=== PATIENT | female | born 1985 | race African-American/Black ===

== ENCOUNTER 2016-05-18 14:56 | Emergency (ER) | payer BC, OTHER ==
[~2016-05-18] VITALS: Ht 172.7 cm; Wt 158.8 kg
[2016-05-18 15:50] VITALS: BP 163/82
[2016-05-18] MEDS ORDERED: HYDR115S2 PO (16:28)
[2016-05-18] MEDS ORDERED: AZIT250T PO (16:28)
--- NOTE | 2016-05-18 16:28 | PHYS DOC ---
Past Medical History Past Medical History: No Pertinent History, Asthma Past Surgical History: No Surgical History Alcohol Use: None Drug Use: None Adult General Chief Complaint Chief Complaint: GENERALIZED BODY ACHES [facility] HPI Patient is a 30 year old female presents emergency Department with complaints of a progressive illness over the past 4 days this culminated in her right ear pain, headaches, fevers and chills, nasal congestion as well as body aches. Patient denies any known direct ill contacts with similar symptoms. She states that she did have a niece with a fever cough that she was exposed to approximately week ago. Patient does have a history of asthma. She denies any wheezing or respiratory difficulty. Patient denies antibiotic use, hospitalization or foreign travel within the past 90 days. Review of Systems Review of Systems Constitutional: Denies fever or chills [] Eyes: Denies change in visual acuity, redness, or eye pain [] HENT: Denies nasal congestion or sore throat [] Respiratory: Denies cough or shortness of breath [] Cardiovascular: No additional information not addressed in HPI [] GI: Denies abdominal pain, nausea, vomiting, bloody stools or diarrhea [] : Denies dysuria or hematuria [] Musculoskeletal: Denies back pain or joint pain [] Integument: Denies rash or skin lesions [] Neurologic: Denies headache, focal weakness or sensory changes [] Endocrine: Denies polyuria or polydipsia [] Allergies Allergies Allergies Coded Allergies Type Severity Reaction Last Updated Verified No Known Drug Allergies 04/22/13 No Physical Exam Physical Exam Constitutional: Well developed, well nourished, no acute distress, non-toxic appearance. HENT: Normocephalic, atraumatic, bilateral external ears normal, oropharynx moist, no oral exudates, nose normal. Right tympanic membrane is bulging and hyperemic. There is no mastoiditis. There is no trismus or hot potato speech. Posterior oropharynx is normal in appearance. Eyes: PERRLA, EOMI, conjunctiva normal, no discharge. [] Neck: Normal range of motion, no tenderness, supple, no stridor. There is no meningismus. There is bilateral anterior posterior cervical lymphadenopathy. Cardiovascular:Heart rate regular rhythm, no murmur [] Lungs & Thorax: Bilateral breath sounds clear to auscultation. Abdomen: Bowel sounds normal, soft, no tenderness, no masses, no pulsatile masses. [] Skin: Warm, dry, no erythema, no rash. Back: No tenderness, no CVA tenderness. [] Extremities: No tenderness, no cyanosis, no clubbing, ROM intact, no edema. [] Neurologic: Alert and oriented X 3, normal motor function, normal sensory function, no focal deficits noted. [] Psychologic: Affect normal, judgement normal, mood normal. [] Current Patient Data Vital Signs Vital Signs Date Time Temp Pulse Resp B/P Pulse Ox O2 Delivery O2 Flow Rate FiO2 05/18/16 15:50 100.4 110 24 97 Room Air 100.4 EKG EKG [] Radiology/Procedures Radiology/Procedures [] Course & Med Decision Making Course & Med Decision Making Pertinent Labs and Imaging studies reviewed. (See chart for details) [] Dragon Disclaimer Dragon Disclaimer This electronic medical record was generated, in whole or in part, using a voice recognition dictation system. Departure Departure Impression: Primary Impression: Viral upper respiratory infection Additional Impression: Otitis media Disposition: 01 HOME, SELF-CARE Condition: GOOD Referrals: NO PCP (PCP) Patient Instructions: Otitis Media, Adult, Ognh-[id number], Upper Respiratory Infection, Adult, [id number] Additional Instructions: 1. Take the medication as prescribed. Augment the medication with ibuprofen every 8 hours. 2. Review the discharge instructions for self-care and reasons to return the emergency department. 3. Use the pamphlet provided for assistance in finding a primary care doctor to address your medical concerns and provide follow-up care within the next week. Scripts Azithromycin (Zithromax)250 Mg Tablet1 Pkg PO UD #6 TAB Prov:LUCILA MATTHEWS 05/18/16 Hydrocodone/Chlorphen Polis (Tussionex Pennkinetic Susp)480 Ml [id number].[id number] Ml PO BID PRN COUGH #120 ML Prov:LUCILA MATTHEWS 05/18/16 Problem Qualifiers LUCILA MATTHEWS May 18, 2016 16:28
== END 2016-05-18 16:44 | disposition home or self-care (01) ==
LOC: ER 14:56
DX: J06.9 Acute upper respiratory infection, unspecified (principal); H66.91 Otitis media, unspecified, right ear; J45.909 Unspecified asthma, uncomplicated
CPT/HCPCS: 99283

== ENCOUNTER 2016-12-30 21:01 | Emergency (ER) | payer SELFPAY ==
[~2016-12-30] VITALS: Ht 172.7 cm; Wt 158.8 kg
[~2016-12-30 21:01] MED LIST: AZIT250T PO; HYDR115S2 PO
[2016-12-30 21:20] VITALS: BP 160/88
--- NOTE | 2016-12-30 21:30 | PHYS DOC ---
Past Medical History Past Medical History: No Pertinent History, Asthma Past Surgical History: No Surgical History Alcohol Use: None Drug Use: None Adult General Chief Complaint Chief Complaint: VAGINAL PROBLEM HPI HPI Patient is a 31 year old female presents to the emergency department stating that she has having vaginal itching. She denies vaginal discharge. She denies any urinary frequency urgency or pain with urination. She denies any abdominal pain and fever, chills or nausea vomiting. Patient denies being sexually active. Review of Systems Review of Systems Constitutional: Denies fever or chills [] Eyes: Denies change in visual acuity, redness, or eye pain [] HENT: Denies nasal congestion or sore throat [] Respiratory: Denies cough or shortness of breath [] Cardiovascular: No additional information not addressed in HPI [] GI: Denies abdominal pain, nausea, vomiting, bloody stools or diarrhea [] : Denies dysuria or hematuria. Complaint of vaginal itching Musculoskeletal: Denies back pain or joint pain [] Integument: Denies rash or skin lesions [] Neurologic: Denies headache, focal weakness or sensory changes [] Endocrine: Denies polyuria or polydipsia [] Allergies Allergies Allergies Coded Allergies Type Severity Reaction Last Updated Verified No Known Drug Allergies 04/22/13 No Physical Exam Physical Exam Constitutional: Well developed, well nourished, no acute distress, non-toxic appearance. [] HENT: Normocephalic, atraumatic, bilateral external ears normal, oropharynx moist, no oral exudates, nose normal. [] Eyes: PERRLA, EOMI, conjunctiva normal, no discharge. [] Neck: Normal range of motion, no tenderness, supple, no stridor. [] Cardiovascular: Patient pink warm and dry Lungs & Thorax: No respiratory distress noted Skin: Warm, dry, no erythema, no rash. [] Extremities: No tenderness, no cyanosis, no clubbing, ROM intact, no edema. [] Neurologic: Alert and oriented X 3, normal motor function, normal sensory function, no focal deficits noted. [] Psychologic: Affect normal, judgement normal, mood normal. [ Vaginal exam completed with my, RN at bedside. Manual exam with no adnexal no CMT tenderness noted. Speculum exam noted with white vaginal discharge with a foul odor. Current Patient Data Vital Signs Vital Signs Date Time Temp Pulse Resp B/P (MAP) Pulse Ox O2 Delivery O2 Flow Rate FiO2 12/30/16 21:20 98.5 96 18 97 Room Air 98.5 Lab Values Laboratory Tests Test 12/30/16 21:25 12/30/16 21:28 Urine Collection Type Unknown Urine Color Yellow Urine Clarity Turbid Urine pH 6.0 Urine Specific [place] >=1.030 Urine Protein Negative mg/dL (NEG-TRACE) Urine Glucose (UA) 250 mg/dL (NEG) Urine Ketones (Stick) Negative mg/dL (NEG) Urine Blood Negative (NEG) Urine Nitrite Negative (NEG) Urine Bilirubin Negative (NEG) Urine Urobilinogen Dipstick 0.2 mg/dL (0.2 mg/dL) Urine Leukocyte Esterase Small (NEG) Urine RBC 0 /HPF (0-2) Urine WBC 11-20 /HPF (0-4) Urine Squamous Epithelial Cells Many /LPF Urine Bacteria Moderate /HPF (0-FEW) Urine Mucus Marked /LPF Urine Yeast Present /HPF POC Urine HCG, Qualitative Hcg negative (Negative) Microbiology 12/30/16 Wet Prep - Final, Complete EKG EKG [] Radiology/Procedures Radiology/Procedures [] Course & Med Decision Making Course & Med Decision Making Pertinent Labs and Imaging studies reviewed. (See chart for details) Urine is positive for UTI and yeast infection. Patient will be discharged home in stable condition. Drink plenty of fluids such as water and cranberry juice. Avoid cranberry juice cocktail, carbonate beverages, citrus fruits and alcohol sees her considered irritants to the bladder. Medication as prescribed. Follow-up primary care physician next 7-10 days to make sure you cleared the urinary tract infection. Signs and symptoms to return back to emergency prior has been provided. All questions and concerns been answered at patient's bedside. [] Dragon Disclaimer Dragon Disclaimer This electronic medical record was generated, in whole or in part, using a voice recognition dictation system. Departure Departure Impression: Primary Impression: UTI (urinary tract infection) Additional Impression: Magi infection Disposition: 01 HOME, SELF-CARE Condition: STABLE Referrals: CELESTINA DING MD (PCP) Patient Instructions: Candidal Vulvovaginitis, [id number], Urinary Tract Infection, Yufi-[id number] Additional Instructions: Your urine was positive for urinary tract infection. Your wet prep identified yeast in her vaginal area. Medication as prescribed. Drink plenty of fluids such as water and cranberry juice. Avoid cranberry juice cocktail, carbonate beverages, citrus fruits, caffeine, and alcohol sees her considered irritants to the bladder. Follow-up with your primary care physician next 7-10 days to make sure you cleared the urinary tract infection. Return back to emergency prior signs symptoms of become worse. Scripts Nitrofurantoin Monohyd/M-Cryst (MACROBID 100 MG CAPSULE) 100 Mg Capsule 1 CAP PO BID, #14 CAP Prov: JAMEOSN KEARNEY APRN 12/30/16 Fluconazole (DIFLUCAN) 150 Mg Tablet 1 TAB PO ONCE, #1 TAB 1 Refill Prov: JAMESON KEARNEY APRN 12/30/16 Problem Qualifiers Primary Impression: UTI (urinary tract infection) Urinary tract infection type: site unspecified Hematuria presence: without hematuria Qualified Codes: N39.0 - Urinary tract infection, site not specified JAMESON KEARNEY APRN Dec 30, 2016 21:30
[2016-12-30 21:38] LABS: BILIRUBIN,URINE NEGATIVE (NEG); GLUCOSE,URINE 250 mg/dL (NEG); NITRITE,URINE NEGATIVE (NEG); PROTEIN,URINE NEGATIVE (NEG-TRACE); UROBILINOGEN,URINE 0.2 mg/dL (0.2 mg/dL)
[2016-12-30 21:51] LABS: BACTERIA,URINE MODERATE /HPF (0-FEW); RBC,URINE 0 /HPF (0-2); SQUAMOUS EPITHELIAL CELL,UR MANY /LPF; YEAST,URINE PRESENT /HPF
[2016-12-30] MEDS ORDERED: NITR100C62 PO (22:09)
[2016-12-30] MEDS ORDERED: FLUC150T PO (22:09)
== END 2016-12-30 22:11 | disposition home or self-care (01) ==
LOC: ER 21:01
DX: B37.49 Other urogenital candidiasis (principal); J45.909 Unspecified asthma, uncomplicated
CPT/HCPCS: 81001; 81025; 87086; 87491; 87591; 99284; Q0111

== ENCOUNTER 2018-08-21 16:20 | Emergency (ER) | payer BC, SELFPAY ==
[~2018-08-21] VITALS: Ht 175.3 cm; Wt 158.8 kg
[~2018-08-21 16:20] MED LIST changes: +FLUC150T PO; +NITR100C62 PO
[2018-08-21 17:20] LABS: BILIRUBIN,URINE NEGATIVE (NEG); CLARITY,URINE CLOUDY; COLOR,URINE YELLOW; NITRITE,URINE NEGATIVE (NEG); PH,URINE 5.5; PROTEIN,URINE NEGATIVE (NEG-TRACE); UROBILINOGEN,URINE 0.2 mg/dL (0.2 mg/dL)
[2018-08-21 17:28] LABS: SQUAMOUS EPITHELIAL CELL,UR MANY /LPF
[2018-08-21 17:29] LABS: BACTERIA,URINE MODERATE /HPF (0-FEW); WBC,URINE >40 /HPF (0-4)
--- NOTE | 2018-08-21 17:31 | PHYS DOC ---
Past Medical History Past Medical History: No Pertinent History, Asthma Past Surgical History: No Surgical History Alcohol Use: None Drug Use: None Adult General Chief Complaint Chief Complaint: VAGINAL PROBLEM HPI HPI 33-year-old female presents to ER via POV for complaints of vaginal irritation and dysuria. Patient reports when states she started having irritation in her genital area and then developed dysuria. She denies any abnormal bleeding. LMP was 2 weeks ago. Patient states she has had some vaginal discharge. She reports she is denies any concerns for sexually transmitted disease. Patient reports she has been using Desitin and her genitals with no relief of symptoms. Review of Systems Review of Systems Constitutional: Denies fever or chills [] Eyes: Denies change in visual acuity, redness, or eye pain [] HENT: Denies nasal congestion or sore throat [] Respiratory: Denies cough or shortness of breath [] Cardiovascular: No additional information not addressed in HPI [] GI: Denies abdominal pain, nausea, vomiting, bloody stools or diarrhea [] : Denies dysuria or hematuria [] Musculoskeletal: Denies back pain or joint pain [] Integument: Denies rash or skin lesions [] Neurologic: Denies headache, focal weakness or sensory changes [] Endocrine: Denies polyuria or polydipsia [] All other systems were reviewed and found to be within normal limits, except as documented in this note. Current Medications Current Medications Current Medications Medications (Trade) Dose Ordered Sig/Mary Start Time Stop Time Status Last Admin Dose Admin Ondansetron HCl (Zofran Odt) 4 mg STK-MED ONCE 08/21/18 18:41 08/21/18 18:42 DC Allergies Allergies Allergies Coded Allergies Type Severity Reaction Last Updated Verified No Known Drug Allergies 04/22/13 No Physical Exam Physical Exam Constitutional: Well developed, well nourished, no acute distress, non-toxic appearance. [] HENT: Normocephalic, atraumatic, bilateral external ears normal, oropharynx moist, no oral exudates, nose normal. [] Eyes: PERRLA, EOMI, conjunctiva normal, no discharge. [] Neck: Normal range of motion, no tenderness, supple, no stridor. [] Cardiovascular:Heart rate regular rhythm, no murmur [] Lungs & Thorax: Bilateral breath sounds clear to auscultation [] Abdomen: Bowel sounds normal, soft, no tenderness, no masses, no pulsatile masses. [] Skin: Warm, dry, no erythema, no rash. [] Back: No tenderness, no CVA tenderness. [] Extremities: No tenderness, no cyanosis, no clubbing, ROM intact, no edema. [] Neurologic: Alert and oriented X 3, normal motor function, normal sensory function, no focal deficits noted. [] Psychologic: Affect normal, judgement normal, mood normal. [] Current Patient Data Vital Signs Vital Signs Date Time Temp Pulse Resp B/P (MAP) Pulse Ox O2 Delivery O2 Flow Rate FiO2 08/21/18 18:09 98.0 84 16 135/84 (101) 95 Room Air 98.0 Lab Values Laboratory Tests Test 08/21/18 17:01 08/21/18 17:13 Urine Collection Type Unknown Urine Color Yellow Urine Clarity Cloudy Urine pH 5.5 Urine Specific [place] >=1.030 Urine Protein Negative mg/dL (NEG-TRACE) Urine Glucose (UA) >=1000 mg/dL (NEG) Urine Ketones (Stick) Negative mg/dL (NEG) Urine Blood Trace (NEG) Urine Nitrite Negative (NEG) Urine Bilirubin Negative (NEG) Urine Urobilinogen Dipstick 0.2 mg/dL (0.2 mg/dL) Urine Leukocyte Esterase Small (NEG) Urine RBC 1-2 /HPF (0-2) Urine WBC >40 /HPF (0-4) Urine Squamous Epithelial Cells Many /LPF Urine Bacteria Moderate /HPF (0-FEW) Urine Mucus Marked /LPF POC Urine HCG, Qualitative Hcg negative (Negative) Microbiology 08/21/18 Wet Prep - Final, Complete EKG EKG [] Radiology/Procedures Radiology/Procedures Pelvic Exam: EDT Glove Stitcher present 1839 Abdomen: Nontender External Genitalia: Normal Skin- no rash or lesions Speculum: Normal vaginal mucosa, normal cervical discharge Bimanual: No adnexal masses or tenderness, No CMT Course & Med Decision Making Course & Med Decision Making Pertinent Labs and Imaging studies reviewed. (See chart for details) [] Dragon Disclaimer Dragon Disclaimer This electronic medical record was generated, in whole or in part, using a voice recognition dictation system. Departure Departure Impression: Primary Impression: UTI (urinary tract infection) Additional Impression: Bacterial vaginosis Disposition: HOME, SELF-CARE Condition: STABLE Referrals: CELESTINA DING MD (PCP) Patient Instructions: Bacterial Vaginosis, Urinary Tract Infection Additional Instructions: Avoid fragrant soaps/ointments/paste in vaginal area. If symptoms persist follow-up with your primary care physician for reevaluation and further care. Scripts Metronidazole (FLAGYL) 500 Mg Tablet 1 TAB PO BID, #14 TAB 0 Refills No drinking alcohol while taking this medication and for 3 days following completion of this medication. Prov: ROSEMARY HUDSON APRN 08/21/18 Cephalexin (KEFLEX) 500 Mg Capsule 1 CAP PO BID, #14 CAP 0 Refills Prov: ROSEMARY HUDSON APRN 08/21/18 Problem Qualifiers ROSEMARY HUDSON APRN August 21, 2018 17:31
[2018-08-21 18:09] VITALS: BP 135/84
[2018-08-21] MEDS ORDERED: ONDANSETRON ODT 4 MG TAB.RAPDIS. ONE (18:41)
[2018-08-21] MEDS ORDERED: CEPH-264 PO (19:20)
[2018-08-21] MEDS ORDERED: METR500T PO (19:25)
[2018-08-24 14:10] LABS: GC PROBE Negative (Negative)
== END 2018-08-21 19:46 | disposition home or self-care (01) ==
LOC: ER 16:20
DX: N39.0 Urinary tract infection, site not specified (principal); N76.0 Acute vaginitis; B96.89 Other specified bacterial agents as the cause of diseases classified elsewhere; J45.909 Unspecified asthma, uncomplicated
CPT/HCPCS: 81001; 81025; 87086; 87491; 87591; 99284; Q0111

== ENCOUNTER 2018-08-28 22:07 | Emergency (ER) | payer BC ==
[~2018-08-28] VITALS: Ht 175.3 cm; Wt 158.8 kg
[~2018-08-28 22:07] MED LIST changes: +CEPH-264 PO; +METR500T PO
[2018-08-28 23:51] VITALS: BP 150/96
[2018-08-29] MEDS ORDERED: FLUC100T7 PO (00:22)
--- NOTE | 2018-08-29 00:34 | PHYS DOC ---
Past Medical History Past Medical History: No Pertinent History, Asthma Past Surgical History: No Surgical History Alcohol Use: None Drug Use: None Adult General Chief Complaint Chief Complaint: VAGINAL PROBLEM HPI HPI Patient is a 33 year old AA female evaluated in this emergency department one week ago and diagnosed with bacterial vaginosis and urinate tract infection. Patient was prescribed 2 different antibiotics and has completed treatment. States rash is resolved but now reports itching and cottage cheeselike discharge. No fever chills, nausea vomiting or sweats no pelvic pain. No other acute symptoms or complaints. 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 [] Review of Systems Review of Systems ROS as per HPI All other systems were reviewed and found to be within normal limits, except as documented in this note. Allergies Allergies Allergies Coded Allergies Type Severity Reaction Last Updated Verified No Known Drug Allergies 04/22/13 No Physical Exam Physical Exam Constitutional: Well developed, well nourished, no acute distress, non-toxic appearance. [] HENT: Normocephalic, atraumatic, bilateral external ears normal, oropharynx moist, no oral exudates, nose normal. [] Eyes: PERRLA, EOMI, conjunctiva normal, no discharge. [] Abdomen: Bowel sounds normal, soft, no tenderness, no masses, no pulsatile masses. [] Extremities: No tenderness, no cyanosis, no clubbing, ROM intact, no edema. [] Neurologic: Alert and oriented X 3, normal motor function, normal sensory function, no focal deficits noted. [] Psychologic: Affect normal, judgement normal, mood normal. [] Current Patient Data Vital Signs Vital Signs Date Time Temp Pulse Resp B/P (MAP) Pulse Ox O2 Delivery O2 Flow Rate FiO2 08/28/18 23:51 98.1 84 18 150/96 (114) 100 Room Air 98.1 EKG EKG [] Radiology/Procedures Radiology/Procedures [] Course & Med Decision Making Course & Med Decision Making Pertinent Labs and Imaging studies reviewed. (See chart for details) [History suggestive yeast vaginitis. Antiyeast medication prescribed with AUGER OPERATOR follow-up recommended. ] Dragon Disclaimer Dragon Disclaimer This electronic medical record was generated, in whole or in part, using a voice recognition dictation system. Departure Departure Impression: Primary Impression: Vaginitis Disposition: HOME, SELF-CARE Condition: GOOD Patient Instructions: Vaginitis, [id number] Additional Instructions: Please take ant-yeast medication as directed. Follow-up with your AUGER OPERATOR or women's physician in one week for reevaluation Scripts Fluconazole (DIFLUCAN) 100 Mg Tablet 100 MG PO Q3DAYS, #2 TAB Prov: SHELDON GOFF DO 08/29/18 SHELDON GOFF DO Aug 29, 2018 00:34
== END 2018-08-29 00:30 | disposition home or self-care (01) ==
LOC: ER 22:07
DX: N76.0 Acute vaginitis (principal); J45.909 Unspecified asthma, uncomplicated
CPT/HCPCS: 99283